=== PATIENT | male | born 1990 ===

== ENCOUNTER 2022-02-27 20:34 | Emergency (ER) | payer BC, OTHER ==
[2022-02-27] MEDS ORDERED: Ibuprofen 600 MG Tab PO ONE (21:17)
== END 2022-02-27 22:21 | disposition home or self-care (01) ==
LOC: MW.ED 20:34
DX: S43.004A Unspecified dislocation of right shoulder joint, initial encounter (principal); Z86.16 Personal history of COVID-19; W22.09XA Striking against other stationary object, initial encounter
CPT/HCPCS: 23650; 73030; 99283; A9270